=== PATIENT | female | born 1950 | race Caucasian/White ===

== ENCOUNTER 2025-01-04 09:36 | Emergency (ER) | payer BC, MEDICARE, SELFPAY ==
[2025-01-04 09:49] VITALS: BP 113/47
[2025-01-04 09:53] VITALS: BMI 44.3
--- NOTE | 2025-01-04 09:54 | ED.GENMED ---
History of Present Illness
General
Chief Complaint: Fall
Source: patient
Exam Limitations: none
Time Seen by Provider: 01/04/25 09:47
History of Present Illness
History of Present Illness:
See MDM
Past History
Past History
ED Past Medical History: GERD and NIDDM
ED Past Surgical History: Gynecological
Social History
Tobacco: Non-smoker
Alcohol: None
Phy Exam
Physical Exam
Physical Exam:
See MDM
Course
Orders/Labs/Results
Orders:
Orders
01/04/25 09:53
Acetaminophen [Tylenol] 650 mg PO NOW STA
Knee, Left 4 or More Views [CR Knee - Left 4 Or More View*] Urgent
Comment:
Reason For Exam: fall, left knee pain
Knee, Right 4 or More Views [CR Knee- Right 4 Or More View*] Urgent
Comment:
Reason For Exam: fall, R knee pain
01/04/25 09:54
Bacitracin Zinc [Bacitracin Ointment] 1 applic .ROUTE .STK-MED ONE
Vital Signs
Initial and Last Documented VS:
Initial Vital Signs
Temp Pulse Resp BP Pulse Ox
98.7 F 96 18 113/47 98
01/04/25 09:49 01/04/25 09:49 01/04/25 09:49 01/04/25 09:49 01/04/25 09:49
Last Documented Vital Signs
Temp Pulse Resp BP Pulse Ox
98.7 F 96 18 158/59 96
01/04/25 09:49 01/04/25 09:49 01/04/25 09:49 01/04/25 11:08 01/04/25 10:48
MDM/Problems Addressed
Differential Diagnosis Includes:
HPI and MDM Narrative:
74-year-old female presenting for evaluation of ruptured blister. Patient had a fall and she landed on both knees. She was dealing with a large blister to her left leg. Her primary care had placed her on Bactrim. Patient was worried because the
blister ruptured and a lot of clear fluid came out.
On exam, she does have a large ruptured blister to her left leg. There is mild erythema but she is already on Bactrim. Will wrap the blister and place antibiotic ointment on the exposed skin
Given bilateral knee pain after fall, will obtain x-rays
Physical exam
General: Well appearing and non-toxic
HEENT: protecting airway
Neck: appears supple
CV: No evidence of cyanosis
Resp: No accessory muscle use
Abd: Non-distended
Extremities: Bilateral abrasions to anterior knees
Neuro: alert
Psych: Normal affect
Skin: large ruptured blister to the left leg. Mild surrounding erythema
Problems Addressed including Acute and Chronic Conditions affecting care:
1. Ruptured blister
Acuity: acute
Prognosis: stable
Details: Will wrap and place antibiotic ointment
2. Bilateral knee pain
Acuity: acute
Prognosis: stable
Details: Will obtain bilateral knee x-rays
Updates
X-rays negative for fracture. Patient ambulating and feels comfortable going home
Differential Diagnosis (but not limited to): Abrasion, ruptured blister
Testing considered: Left leg x-ray
Drug therapy (if applicable): OTC meds, please see d/c instruction regarding Rx drugs
Amount and/or Complexity of Data Reviewed
Clinical info obtained from: Patient
External data reviewed: N/A
Labs I independently reviewed (but not limited to): N/A
Radiology: X-ray independently reviewed: Knee x-rays negative for fracture
Pulse Ox: not hypoxic
EKG independently reviewed: N/A
Ward Clerk: N/A
Critical Care: N/A
Risk of Complication:
Social Determinants of health: Good social support
Discussed with other providers: N/A
Escalation of Care includes Admit/Obs: After being observed in the Emergency Department, pt stable for discharge.
Occasional wrong word or 'sound a like' substitutions may have occurred due to the inherent limitations of voice recognition software. Read the chart carefully and recognize, using context, where substitutions have occurred.
*Critical Care Note
Total Time (30-74mins, 75-104mins- exclusive of procedures): Not Applicable
ED Attending Note
-
Portions of this chart may have been created with voice recognition software.� Occasional wrong word or��sound alike� substitutions may have occurred due to the inherent limitations of voice recognition software.
Discharge Plan
Departure
Patient Disposition: Home (Routine Discharge)
Date of Disposition: 01/04/25
Time of Disposition: 12:20
Patient with high blood pressure during this ER visit?: Yes
Discharge Problem:
Contusion of knee
Instructions: Contusion (DC), BLOOD PRESSURE
Prescriptions:
No Action
glimepiride 4 MG tablet
4 mg PO BID
metformin 500 MG tablet extended release 24 hr
500 mg PO QID
aspirin 81 MG tablet,delayed release (DR/EC)
81 mg PO DAILY
ranitidine HCl 150 MG tablet
150 mg PO DAILY
insulin glargine [Lantus U-100 Insulin] 1,000 UNITS/10 ML solution
35 units SC HS
Patient Comments:
Usually takes at 2200 daily but yesterday took it at 1500 due to testing today
Referrals:
Rajan Enciso DO [Family Provider] -
Activity Restrictions/Additional Instructions:
Please return for any worsening symptoms.
You may return at any time if you have further concerns.
Please follow up with your doctor at the first available appointment, preferably this week.
Thank you for choosing [facility].
Interventions
Interventions:
*Risk Screen - Suicide Last Done: 01/04/25 09:51
*General Assessment Last Done: 01/04/25 09:51
*Neglect/Abuse Screening Last Done: 01/04/25 09:51
*ED- Fall Risk Assessment Last Done: 01/04/25 10:04
*ED COVID-19 Vaccine History Last Done: 01/04/25 10:04
ED-Musculoskeletal Assessment Last Done: 01/04/25 10:03
ED- Neurological Assessment Last Done: 01/04/25 10:03
ED-Skin Assessment Last Done: 01/04/25 10:03
Discharge Date and Time
Print Language: [email or web address]
[2025-01-04 10:00] VITALS: BP 146/66
[2025-01-04] MEDS: TYLENOL 650 MG PO (10:13)
[2025-01-04 11:08] VITALS: BP 158/59
== END 2025-01-04 14:47 | disposition home or self-care (01) ==
LOC: EMR 09:36
PROVIDERS: EMERGENCY PHYSICIAN Student in an Organized Health Care Education/Training Program; FAMILY PHYSICIAN Family Medicine
DX: S80.02XA Contusion of left knee, initial encounter (principal); M25.562 Pain in left knee; M25.561 Pain in right knee; W19.XXXA Unspecified fall, initial encounter; R03.0 Elevated blood-pressure reading, without diagnosis of hypertension; E11.9 Type 2 diabetes mellitus without complications; K21.9 Gastro-esophageal reflux disease without esophagitis; Z79.82 Long term (current) use of aspirin; Z88.8 Allergy status to other drugs, medicaments and biological substances; Z88.1 Allergy status to other antibiotic agents; Z88.3 Allergy status to other anti-infective agents; Z88.0 Allergy status to penicillin; Z91.013 Allergy to seafood
CPT/HCPCS: 99283; 73564

== ENCOUNTER → 2025-02-23 07:50 | Outpatient (REF) | payer BC, MEDICARE, SELFPAY | LOC: WOUND 07:50 | PROVIDERS: ATTENDING PHYSICIAN Surgery | DX: I87.312 Chronic venous hypertension (idiopathic) with ulcer of left lower extremity (principal); L97.222 Non-pressure chronic ulcer of left calf with fat layer exposed; I87.2 Venous insufficiency (chronic) (peripheral); I73.9 Peripheral vascular disease, unspecified; E11.59 Type 2 diabetes mellitus with other circulatory complications; I25.10 Atherosclerotic heart disease of native coronary artery without angina pectoris; E66.01 Morbid (severe) obesity due to excess calories; I49.3 Ventricular premature depolarization; I45.10 Unspecified right bundle-branch block | CPT/HCPCS: 11042; 11045; 99204 ==

== ENCOUNTER → 2025-03-02 12:54 | Outpatient (REF) | payer BC, SELFPAY | LOC: WOUND 12:54 | PROVIDERS: ATTENDING PHYSICIAN Surgery | DX: I87.312 Chronic venous hypertension (idiopathic) with ulcer of left lower extremity (principal); L97.222 Non-pressure chronic ulcer of left calf with fat layer exposed; I87.2 Venous insufficiency (chronic) (peripheral); I73.9 Peripheral vascular disease, unspecified; E11.59 Type 2 diabetes mellitus with other circulatory complications; I25.10 Atherosclerotic heart disease of native coronary artery without angina pectoris; E66.01 Morbid (severe) obesity due to excess calories; I49.3 Ventricular premature depolarization; I45.10 Unspecified right bundle-branch block | CPT/HCPCS: 11042; 11045 ==

== ENCOUNTER → 2025-03-03 13:43 | Outpatient (REF) | payer BC, SELFPAY | LOC: RAD 13:43 | PROVIDERS: ATTENDING PHYSICIAN Surgery; FAMILY PHYSICIAN Family Medicine | DX: I87.312 Chronic venous hypertension (idiopathic) with ulcer of left lower extremity (principal); I73.9 Peripheral vascular disease, unspecified | CPT/HCPCS: 93922; 93970 ==

== ENCOUNTER → 2025-03-16 13:50 | Outpatient (REF) | payer BC, SELFPAY | LOC: WOUND 13:50 | PROVIDERS: ATTENDING PHYSICIAN Surgery | DX: I87.312 Chronic venous hypertension (idiopathic) with ulcer of left lower extremity (principal); L97.222 Non-pressure chronic ulcer of left calf with fat layer exposed; I73.9 Peripheral vascular disease, unspecified; E11.59 Type 2 diabetes mellitus with other circulatory complications; I25.10 Atherosclerotic heart disease of native coronary artery without angina pectoris; E66.01 Morbid (severe) obesity due to excess calories; I49.3 Ventricular premature depolarization; I45.10 Unspecified right bundle-branch block | CPT/HCPCS: 11042; 11045 ==

== ENCOUNTER → 2025-03-30 10:44 | Outpatient (REF) | payer BC, SELFPAY | LOC: RCS 10:44 | PROVIDERS: ATTENDING PHYSICIAN Internal Medicine; FAMILY PHYSICIAN Family Medicine | DX: I25.10 Atherosclerotic heart disease of native coronary artery without angina pectoris (principal); I45.10 Unspecified right bundle-branch block; I35.8 Other nonrheumatic aortic valve disorders | CPT/HCPCS: 93306; Q9950 ==

== ENCOUNTER → 2025-03-30 12:35 | Outpatient (REF) | payer BC, SELFPAY | LOC: WOUND 12:35 | PROVIDERS: ATTENDING PHYSICIAN Surgery | DX: I87.312 Chronic venous hypertension (idiopathic) with ulcer of left lower extremity (principal); L97.222 Non-pressure chronic ulcer of left calf with fat layer exposed; I73.9 Peripheral vascular disease, unspecified; E11.59 Type 2 diabetes mellitus with other circulatory complications; I25.10 Atherosclerotic heart disease of native coronary artery without angina pectoris; E66.01 Morbid (severe) obesity due to excess calories | CPT/HCPCS: 11042; 11045 ==

== ENCOUNTER → 2025-05-04 13:37 | Outpatient (REF) | payer BC, SELFPAY | LOC: WOUND 13:37 | PROVIDERS: ATTENDING PHYSICIAN Surgery | DX: I87.312 Chronic venous hypertension (idiopathic) with ulcer of left lower extremity (principal); I73.9 Peripheral vascular disease, unspecified; E11.59 Type 2 diabetes mellitus with other circulatory complications; I25.10 Atherosclerotic heart disease of native coronary artery without angina pectoris; E66.01 Morbid (severe) obesity due to excess calories; I49.3 Ventricular premature depolarization; I45.10 Unspecified right bundle-branch block | CPT/HCPCS: 11042 ==

== ENCOUNTER → 2025-05-18 13:10 | Outpatient (REF) | payer BC, SELFPAY | LOC: WOUND 13:10 | PROVIDERS: ATTENDING PHYSICIAN Surgery | DX: I87.312 Chronic venous hypertension (idiopathic) with ulcer of left lower extremity (principal); I73.9 Peripheral vascular disease, unspecified; L97.222 Non-pressure chronic ulcer of left calf with fat layer exposed; E11.59 Type 2 diabetes mellitus with other circulatory complications; I25.10 Atherosclerotic heart disease of native coronary artery without angina pectoris; E66.01 Morbid (severe) obesity due to excess calories; I49.3 Ventricular premature depolarization; I45.10 Unspecified right bundle-branch block | CPT/HCPCS: 11042 ==

== ENCOUNTER → 2025-06-01 13:32 | Outpatient (REF) | payer BC, SELFPAY | LOC: WOUND 13:32 | PROVIDERS: ATTENDING PHYSICIAN Surgery | DX: I87.312 Chronic venous hypertension (idiopathic) with ulcer of left lower extremity (principal); L97.222 Non-pressure chronic ulcer of left calf with fat layer exposed; I73.9 Peripheral vascular disease, unspecified; E11.59 Type 2 diabetes mellitus with other circulatory complications; E66.01 Morbid (severe) obesity due to excess calories; I49.3 Ventricular premature depolarization; I45.10 Unspecified right bundle-branch block | CPT/HCPCS: 11042 ==

== ENCOUNTER → 2025-07-26 17:30 | Outpatient (REF) | payer BC, SELFPAY | LOC: WDC 17:30 | PROVIDERS: ATTENDING PHYSICIAN Family Medicine | DX: Z12.31 Encounter for screening mammogram for malignant neoplasm of breast (principal) | CPT/HCPCS: 77063; 77067 ==